=== PATIENT | male | born 1990 | race Caucasian/White ===

== ENCOUNTER 2019-01-16 18:00 | Emergency (ER) | payer SELFPAY ==
[~2019-01-16] VITALS: Ht 167.6 cm; Wt 85.7 kg
[2019-01-16 18:24] VITALS: Ht 167.6 cm; Wt 85.7 kg
[2019-01-16 20:43] LABS: CARBON DIOXIDE 29.5 mmol/L (21-32); CHLORIDE SERUM 98 mmol/L (98-107); CREATININE SERUM 0.9 mg/dL (0.7-1.3); GFR1 > 60 mL/min; GLUCOSE SERUM 387 mg/dL (74-106); POTASSIUM SERUM 4.1 mmol/L (3.5-5.1); SODIUM SERUM 136 mmol/L (136-145)
[2019-01-16 21:26] VITALS: BP 139/78
== END 2019-01-16 21:26 | disposition home or self-care (01) ==
LOC: ED 18:00
PROVIDERS: Emergency Medicine
DX: L02.612 Cutaneous abscess of left foot (principal); E11.65 Type 2 diabetes mellitus with hyperglycemia
CPT/HCPCS: 82962; J2001; J7030

== ENCOUNTER 2019-01-19 08:07 | Emergency (ER) | payer SELFPAY ==
[~2019-01-19] VITALS: Ht 182.9 cm; Wt 82.6 kg
[2019-01-19 08:10] VITALS: Ht 182.9 cm; Wt 82.6 kg
[2019-01-19 10:34] VITALS: BP 130/77
== END 2019-01-19 10:34 | disposition home or self-care (01) ==
LOC: ED 08:07
DX: L02.612 Cutaneous abscess of left foot (principal); E11.9 Type 2 diabetes mellitus without complications